=== PATIENT | female | born 1950 | race Caucasian/White ===

== ENCOUNTER → 2016-11-03 | Outpatient (CLI) | payer OTHER ==
[~2016-11-03] MED LIST: ALBU18002 INH; ASPI81TA28 PO; CHOL100027 PO; EMPA1TAB3 PO; GLIM4TAB PO; HYDR25TA4 PO; HYDUNK PO; KETO10TA PO; LEVO50TA PO; LISI-729 PO; LSNUNK PO; LVXUNK PO; ONDA4TAB7 SL; OXYB5TAB74 PO; OXYC-57 PO; PRVC40 PO; REPA2TAB13 PO; [UNRECOGNIZED DRUG - OTHER] PO
[2016-11-03 11:08] LABS: BASO % 0.4 %; BASO ABS # 0.02 K/uL (0-0.2); COMPLETE YES; EOS % 4.1 %; HEMATOCRIT 45.1 % (37-47); IG% 0.2 %; LYMPH % 24.3 %; LYMPH ABS # 1.31 K/uL (1.2-3.4); MEAN CELL VOLUME 82.3 fL (80-100); MEAN CORPUSCULAR HEMOGLOBIN 28.3 pg (25-34); MEAN CORPUSCULAR HGB CONC 34.4 g/dl (32-36); MEAN PLATELET VOLUME 10.5 fL (7.4-10.4); MONO % 6.5 %; NEUT % 64.5 %; PLATELET COUNT 188 K/uL (130-400); RED BLOOD COUNT 5.48 M/uL (4.2-5.4); WHITE BLOOD COUNT 5.39 K/uL (4.8-10.8)
[2016-11-03 11:20] LABS: BLOOD UREA NITROGEN 16 mg/dl (7-18); BUN/CREATININE RATIO 14.1 (10-20); CALCIUM 9.7 mg/dl (8.5-10.1); CARBON DIOXIDE 28 mmol/L (21-32); CHLORIDE 104 mmol/L (98-107); GLUCOSE 217 mg/dl (70-99); POTASSIUM 3.5 mmol/L (3.5-5.1); SODIUM 141 mmol/L (136-145)
== END | disposition home or self-care (01) ==
LOC: C.CPL 09:51
PROVIDERS: ATTEND Orthopaedic Surgery
DX: M25.512 Pain in left shoulder (principal)

== ENCOUNTER → 2016-11-18 | Day surgery (SDC) | payer OTHER ==
[2016-11-03 11:38] VITALS: Ht 172.7 cm; Wt 83.2 kg
[~2016-11-18] VITALS: Ht 172.7 cm; Wt 83.2 kg
[~2016-11-18] MED LIST changes: +ATROPINE SULFATE 0.1 MG/ML 5ML SYR IV PRN; +BUPIVACAINE/EPINEPHRINE 0.25% 1:200,000 30 ML VIAL ONE; +CEFAZOLIN 2000 MG/60 ML D5W IV SCH; -CHOL100027 PO; +DEXAMETHASONE SOD INJ 4 MG/ML VIAL IV PRN; +EpHEDrine SULFATE INJ 50 MG/ML AMP IV PRN; +EpINEphrine INJ 1MG/ML AMP 1 MG/ML AMP ONE; +FENTANYL CITRATE INJ 50 MCG/1 ML 2 ML VIAL IV PRN; +FENTANYL CITRATE INJ 50 MCG/1 ML 2 ML VIAL ONE; -HYDUNK PO; +KETOROLAC TROMETHAMINE 30 MG/ML VIAL IV. PRN; +LABETALOL HCL IV 5 MG/ML 20ML IV PRN; +LACTATED RINGER'S 1000ML 1,000 ML IV SCH; +LIDOCAINE HCL 1% MPF 2 ML VIAL ONE; +LIDOCAINE HCL 2% 2 ML VIAL (20MG/ML) ONE; -LSNUNK PO; -LVXUNK PO; +METOCLOPRAMIDE HCL INJ 5 MG/ML 2 ML VIAL IV PRN; +MIDAZOLAM HCL 1 MG/ML 2ML VIAL ONE; +MoRPHine SULFATE 10 MG/ML CARP/VIAL IV PRN; -ONDA4TAB7 SL; +ONDANSETRON INJ 2 MG/ML 2 ML VIAL IV PRN; +ONDANSETRON INJ 2 MG/ML 2 ML VIAL ONE; +OXYCODONE/ACETAMINOPHEN 5-325 TAB PO PRN; +PHENYLEPHRINE 100MCG/ML 5ML SYR IV PRN; +PROPOFOL IV EMULSION 10 MG/ML 20 ML VIAL IV ONE; +ROPIVACAINE 0.5% 5 MG/ML 30 ML VIAL ONE; +SODIUM CHLORIDE 0.9% 1000ML 1,000 ML IV SCH; -[UNRECOGNIZED DRUG - OTHER] PO
--- NOTE | 2016-11-18 10:50 | History & Physical Bridge - [place] ---
H&P Re-Evaluation Bridge Note: I have examined the patient, reviewed the History & Physical and in the interval since the performance of the History & Physical I have noted the following changes of clinical significance: No changes noted
[2016-11-18 13:10] VITALS: TEMP 36.4
--- NOTE | 2016-11-18 13:13 | [facility] Post Operative Brief Note ---
Immediate Operative Summary Operative Date Nov 18, 2016. Pre-Operative Diagnosis Left Shoulder Impingement Syndrome; Pain Post-Operative Diagnosis same Procedure(s) Performed Left Shoulder Arthroscopy, Subacromial Decompression, Distal Clavicle Excision Surgeon Dr Childers [employer] Team Member Surgeon(s) ISHMAEL Coyle Estimated Blood Loss trace Findings as above Specimens none Complication(s) None Disposition Recovery Room / PACU
--- NOTE | 2016-11-18 13:15 | Discharge Instructions-SurgCtr ---
Discharge Instructions Visit Reason for Visit: Left Shoulder Impingement Syndrome; Pain Discharge Discharge Diagnosis / Problem: SAME ABOVE Discharge Goals Goal(s): Decrease discomfort, Improve function Activity Recommendations Activity Limitations: as noted below Lifting Limitations: gradually increase as tolerated Exercise/Sports Limitations: gradually increase as tolerated Shower/Bathe: may shower/bathe in 3 days Anesthesia . Post Anesthesia Instructions: If you have had General Anesthesia or IV Sedation: * Do not drive today. * Resume driving when surgeon permits. * Do not make important decisions or sign legal documents today. * Call surgeon for: 1. Temperature elevations greater than 101 degrees F. 2. Uncontrollable pain. 3. Excessive bleeding. 4. Persistent nausea and vomiting. 5. Medication intolerance (nausea, vomiting or rash). * For nausea and vomiting use only clear liquids such as: tea, soda, bouillon until nausea subsides, then gradually increase diet as tolerated. * If you have any concerns or questions, call your surgeon's office. If physician is unavailable and it is an emergency, call 911 or go to the nearest emergency room. . Instructions / Follow-Up Instructions / Follow-Up MEDICATIONS: * Resume previous medications unless instructed otherwise by your surgeon. * Always take pain medication on a full stomach or with food to avoid upset stomach. * Do not drink alcohol or drive while taking narcotics. * Ibuprofen or Tylenol may be taken if narcotic not needed. SPECIAL CARE INSTRUCTIONS: __ None _X_ Keep extremity elevated and iced x 48 hours; apply ice 20-30 minutes 8-10 times/day. May remove at night. _X_ Sling (WEAR NEEDED FOR COMFORT) __24 hrs/day __ Remove at night __ Shoulder Immobilizer __ 24 hrs/day __ Remove at night _X_ Dressing __ Maintain until seen in office, may shower with plastic over site _X_ Remove dressings in 24-48 hours and then may shower _X_ Cover incisions with band-aids after showering __ Do not remove steri-strips Call physician if chills or temperature rises above 102 degrees or pain unrelieved by prescribed pain medications at . . Diet Recommendations Home Diet: no limitations Fluid Restriction: None Procedures Procedures Performed: Left Shoulder Arthroscopy, Subacromial Decompression, Distal Clavicle Excision Pending Studies Studies pending at discharge: no Work Instructions Return To Work: after follow-up Lifting Limitations: INCREASE TOLERATED Medical Emergencies . Who to Call and When: Medical Emergencies: If at any time you feel your situation is an emergency, please call 911 immediately. . Non-Emergent Contact Non-Emergency issues call your: Primary Care Provider Call Non-Emergent contact if: you have a fever, temperature is above 101.5 . . "Provider Documentation" section prepared by Curly Zee.
--- NOTE | 2016-11-18 13:25 | Anesthesia Progress Nt - [facility] ---
Anesthesia Post Op Note Date & Time Nov 18, 2016 at 13:26 Vital Signs Pain Intensity: 0 Vital Signs Past 12 Hours Date Time Temp Pulse Resp B/P Pulse Ox O2 Delivery O2 Flow Rate FiO2 11/18/16 12:13 73 11/18/16 12:13 76 23 96 11/18/16 12:10 114/69 11/18/16 12:08 70 13 96 11/18/16 12:08 70 11/18/16 12:07 70 17 96 11/18/16 12:07 71 11/18/16 12:05 114/72 11/18/16 12:02 67 11/18/16 12:02 68 15 96 11/18/16 12:01 67 11/18/16 12:01 66 0 95 11/18/16 12:00 71 11/18/16 12:00 71 119/73 96 11/18/16 11:59 69 11/18/16 11:59 69 0 96 11/18/16 11:55 138/87 11/18/16 11:54 71 10 96 11/18/16 11:54 71 11/18/16 11:53 69 11/18/16 11:53 69 11 96 11/18/16 11:50 125/72 11/18/16 11:48 71 14 98 11/18/16 11:48 70 11/18/16 11:47 122/74 11/18/16 11:45 68 0 96 11/18/16 11:45 70 11/18/16 11:44 72 11/18/16 11:44 70 0 97 11/18/16 11:39 68 11/18/16 11:39 68 0 94 11/18/16 11:34 73 0 97 11/18/16 11:34 73 11/18/16 11:29 66 11/18/16 11:29 66 0 94 11/18/16 11:24 70 0 95 11/18/16 11:24 70 11/18/16 11:19 74 11/18/16 11:19 74 0 95 11/18/16 11:14 74 11/18/16 11:14 75 0 95 11/18/16 10:55 36.5 87 18 126/92 97 Room Air Notes Mental Status: alert / awake / arousable, participated in evaluation Pt Amnestic to Procedure: Yes Nausea / Vomiting: adequately controlled Pain: adequately controlled Airway Patency, RR, SpO2: stable & adequate BP & HR: stable & adequate Hydration State: stable & adequate Anesthetic Complications: no major complications apparent
--- NOTE | 2016-11-18 14:09 | OPERATIVE REPORT ---
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 POSTOPERATIVE DIAGNOSIS: Same. PROCEDURE: Left shoulder diagnostic arthroscopy with limited debridement, distal clavicle resection, acromioplasty. SURGEON: Dr. Carlos Childers. [place]: Perez Zee PA-C, whose assistance was necessary for positioning the arm and helping with instrumentation. ANESTHESIA: Sedation with a left interscalene nerve block. COMPLICATIONS: None. CONDITION: Stable to PACU. INDICATIONS: Karina is a pleasant 65-year-old female who presented to my office with complaints of left shoulder pain. MRI and clinical examination were diagnostic for external impingement and AC joint arthritis. After failing extensive conservative treatment, she elected to undergo arthroscopy. OPERATION AND FINDINGS: On 11/18/2016 she arrived at [facility] for the above procedure. She was seen in the preoperative holding and the operative extremity was identified and signed. She was given a preoperative antibiotic, taken back to the operating room, laid on the table in supine position and given basic sedation. The left shoulder was then prepped and draped in sterile fashion. Time-out was done and the patient and operative extremity was properly identified. A scope was introduced in the posterior portal. Diagnostic arthroscopy showed some grade 2 chondral changes on the humeral head and some areas of grade 2 chondral changes on the glenoid. They were very small cartilaginous loose bodies. There was some fraying of the anterior labrum. The biceps tendon was intact and went through a normal size biceps gustabo mechanism and the rotator cuff was intact. An anterior portal was made. A shaver was used to do a limited debridement of the intraarticular structures. The scope was placed into the subacromial space. A lateral portal was made. A shaver was used to do a complete subacromial and subdeltoid bursectomy of very red subacromial bursitis. An ablator was used to tease the coracoacromial ligament off the undersurface of the acromion and a 5-0 ankush was used to complete an acromioplasty of a Bigliani type 3 acromion. A shaver was used to remove any excess debris and attention was turned to the rotator cuff. There was no evidence of any bursal sided rotator cuff tears. Attention was then turned to the distal clavicle. Through the anterior portal, a shaver and ablator were used to skeletonize the distal clavicle. A 5-0 ankush was then used to resect the distal 7 mm from the clavicle. Complete resection was checked under direct visualization. A shaver was used to remove any excess debris and no additional pathology was identified. Arthroscopic instruments were removed from the shoulder. Portal sites were closed with 3-0 nylon. She was then placed in a soft dressing and a left arm sling. She was then extubated, transferred to a litter and taken to the postanesthesia care unit in stable condition. She tolerated the procedure well. I attest to the content of the Intraoperative Record and any orders documented therein. Any exceptio ns are noted below.
[2016-11-18 14:10] VITALS: BP 111/67; PULSE 73; O2SAT 96
== END | disposition home or self-care (01) ==
LOC: X.SURG 10:46
PROVIDERS: ATTEND Orthopaedic Surgery
DX: M75.42 Impingement syndrome of left shoulder (principal); M19.012 Primary osteoarthritis, left shoulder; Z98.890 Other specified postprocedural states; I10 Essential (primary) hypertension; J45.909 Unspecified asthma, uncomplicated

== ENCOUNTER 2017-10-17 11:22 | Emergency (ER) | payer OTHER ==
[~2017-10-17] VITALS: Ht 172.7 cm; Wt 86.7 kg
[~2017-10-17 11:22] MED LIST changes: -ATROPINE SULFATE 0.1 MG/ML 5ML SYR IV PRN; -BUPIVACAINE/EPINEPHRINE 0.25% 1:200,000 30 ML VIAL ONE; -CEFAZOLIN 2000 MG/60 ML D5W IV SCH; -DEXAMETHASONE SOD INJ 4 MG/ML VIAL IV PRN; +DTR/5 PO; -EpHEDrine SULFATE INJ 50 MG/ML AMP IV PRN; -EpINEphrine INJ 1MG/ML AMP 1 MG/ML AMP ONE; -FENTANYL CITRATE INJ 50 MCG/1 ML 2 ML VIAL IV PRN; -FENTANYL CITRATE INJ 50 MCG/1 ML 2 ML VIAL ONE; -KETO10TA PO; -KETOROLAC TROMETHAMINE 30 MG/ML VIAL IV. PRN; -LABETALOL HCL IV 5 MG/ML 20ML IV PRN; -LACTATED RINGER'S 1000ML 1,000 ML IV SCH; -LIDOCAINE HCL 1% MPF 2 ML VIAL ONE; -LIDOCAINE HCL 2% 2 ML VIAL (20MG/ML) ONE; -METOCLOPRAMIDE HCL INJ 5 MG/ML 2 ML VIAL IV PRN; -MIDAZOLAM HCL 1 MG/ML 2ML VIAL ONE; -MoRPHine SULFATE 10 MG/ML CARP/VIAL IV PRN; -ONDANSETRON INJ 2 MG/ML 2 ML VIAL IV PRN; -ONDANSETRON INJ 2 MG/ML 2 ML VIAL ONE; -OXYB5TAB74 PO; -OXYC-57 PO; -OXYCODONE/ACETAMINOPHEN 5-325 TAB PO PRN; -PHENYLEPHRINE 100MCG/ML 5ML SYR IV PRN; -PROPOFOL IV EMULSION 10 MG/ML 20 ML VIAL IV ONE; +REPA2TAB12 PO; -REPA2TAB13 PO; -ROPIVACAINE 0.5% 5 MG/ML 30 ML VIAL ONE; -SODIUM CHLORIDE 0.9% 1000ML 1,000 ML IV SCH
[2017-10-17 11:26] VITALS: TEMP 36.7; Ht 172.7 cm; Wt 86.7 kg
[2017-10-17] MEDS ORDERED: ALBUT/IPRATROP 3MG/0.5MG NEB 3 ML VIAL INH STA (11:54)
[2017-10-17 12:54] LABS: BASO % 0.6 %; BASO ABS # 0.04 K/uL (0-0.2); EOS % 2.6 %; EOS ABS # 0.17 K/uL (0-0.5); HEMATOCRIT 44.2 % (37-47); HEMOGLOBIN 15.2 g/dL (12.0-16.0); IG# 0.01 K/uL (0.00-0.02); LYMPH % 23.5 %; LYMPH ABS # 1.54 K/uL (1.2-3.4); MEAN CELL VOLUME 81.7 fL (80-100); MEAN CORPUSCULAR HEMOGLOBIN 28.1 pg (25-34); MEAN CORPUSCULAR HGB CONC 34.4 g/dl (32-36); MEAN PLATELET VOLUME 9.6 fL (7.4-10.4); MONO % 6.1 %; PLATELET COUNT 217 K/uL (130-400); RED CELL DISTRIBUTION WIDTH CV 13.1 % (11.5-14.5); WHITE BLOOD COUNT 6.56 K/uL (4.8-10.8)
--- NOTE | 2017-10-17 12:58 | DIAGNOSTIC IMAGING REPORT ---
CHEST ONE VIEW PORTABLE CLINICAL HISTORY: Chest pain. COMPARISON STUDY: Chest radiograph December 02, 2013. FINDINGS: Lung volumes are normal. No pneumothorax or pleural effusion is noted. There is no evidence for pulmonary edema. No consolidation is identified. Cardiac size is normal. Mediastinal contours are normal. There are cholecystectomy clips. IMPRESSION: No acute cardiopulmonary findings. Electronically signed by: Owen Hagen M.D. 10/17/2017 12:56 PM Dictated Date/Time: 10/17/2017 12:56 PM
[2017-10-17 13:08] LABS: ALBUMIN 4.3 gm/dl (3.4-5.0); ALT/SGPT 41 U/L (12-78); BLOOD UREA NITROGEN 9 mg/dl (7-18); CALCIUM 9.7 mg/dl (8.5-10.1); CARBON DIOXIDE 27 mmol/L (21-32); CREATININE 1.03 mg/dl (0.60-1.20); GLUCOSE 174 mg/dl (70-99); LIPASE 149 U/L (73-393); POTASSIUM 3.1 mmol/L (3.5-5.1); SODIUM 137 mmol/L (136-145)
[2017-10-17 13:13] LABS: ALKALINE PHOSPHATASE 77 U/L (45-117); AST/SGOT 22 U/L (15-37)
[2017-10-17] MEDS ORDERED: INSDGIPEN SC (13:46)
[2017-10-17] MEDS ORDERED: VSC/5 PO (13:46)
[2017-10-17 14:23] VITALS: BP 117/61; PULSE 79; O2SAT 95
--- NOTE | 2017-10-18 16:55 | EMERGENCY ROOM VISIT NOTE ---
ED Visit Note First contact with patient: 11:41 Chief Complaint: Chest pain. History of Present Illness: Ms. Em is a 66 year-old white female who ambulates into the ED complaining of chest pain. Historically patient reports she did not have any personal history or family of heart disease. She does have a history of diabetes, hypertension. Patient reports approximately 24 hours ago she was at [employer] and started experiencing right sided mandibular pain. She describes her pain as a sharp sensation. Her pain started radiating into the right side of the chest. The pain self resolved after approximately 10-15 minutes. She rated her discomfort 7/10. She denies any associated symptoms including upper respiratory tract symptoms, cough, wheezing, shortness of breath, abdominal pain, nausea/vomiting , fevers, chills, sweats, clots, claudication, recent surgery/inactivity/ extended travel. Patient goes on to report that when she woke this morning she had the sensation like she could not bring enough air into her body. This occurred approximately 3 hours ago. The sensation has been constant and patient has not identified any aggravating or alleviating factors related to this. She does report she has a history of asthma and she did use her inhaler without success. Additionally she denies upper respiratory tract symptoms, cough, wheezing, hemoptysis, abdominal pain, nausea, vomiting. Review of Systems: As noted above in history of present illness. All body systems were reviewed and found to be negative as noted above. Past Medical History: As previously noted, diabetic kidney disease, status post cholecystectomy and unspecified surgery. Current Medications: Medications Dose Route/Sig Max Daily Dose Days Date Category Lantus Solostar (Insulin Glargine) 100 Unit/Ml Inj 20 Units SC DAILY 10/17/17 Reported Vesicare (Solifenacin) 5 Mg Tab 5 Mg PO DAILY 10/17/17 Reported Proair Respiclick (Albuterol Sulfate) 108 Mcg/Act Aer 2 Puffs INH Q4H PRN 11/03/16 Reported Pravastatin Sodium (Pravastatin Sod) 40 Mg Tab 1 Tab PO HS 11/03/16 Reported Prinivil (Lisinopril) 5 Mg Tab 5 Mg PO QAM 11/03/16 Reported Synthroid (Levothyroxine Sodium) 50 Mcg Tab 50 Mcg PO QAM 11/03/16 Reported Hctz (Hydrochlorothiazide) 25 Mg Tab 25 Mg PO QAM 11/03/16 Reported Prandin (Repaglinide) 2 Mg Tab 4 Mg PO DINNER 11/03/16 Reported Prandin (Repaglinide) 2 Mg Tab 2 Mg PO LUNCH 11/03/16 Reported Aspirin Ec (Aspirin) 81 Mg Tab 81 Mg PO QAM 11/03/16 Reported Allergies to Medications: Patient denies. Social History: Patient is currently employed; she lives with her and feels safe in her home environment; she denies tobacco and alcohol use. Physical Examination: Vital Signs: Date Time Temp Pulse Resp B/P (MAP) Pulse Ox O2 Delivery O2 Flow Rate FiO2 10/17/17 14:23 79 20 117/61 95 10/17/17 12:37 81 16 128/65 97 Room Air 10/17/17 12:13 78 10/17/17 11:26 36.7 83 18 142/83 96 Room Air GENERAL: 66-year-old female in no acute distress, nontoxic-appearing, afebrile and hemodynamically stable. NEUROLOGICAL: Awake, alert and oriented to person, place and time. Answering questions appropriately and following commands. Normal gait. Good hand eye coordination. SKIN: Warm, dry and pink. No soft tissue eruptions or trauma noted. HEENT: Atraumatic and normocephalic. PERRLA. Sclera white and conjunctiva pink. Oral cavity moist and pink. Pharynx is nonerythematous or edematous. Speech normal. No lymphadenopathy. Trachea midline. No jugular venous distention. BACK: No tenderness over the bony spine. No CVA tenderness. THORAX: Lungs sounds are clear to auscultation and equal bilaterally with symmetrical chest wall. Air movement is diminished bilaterally. No wheezing, rales or rhonchi. No crepitus, tenderness, subcutaneous air or deformities noted. HEART: Regular rate and rhythm. No gallops, rubs or murmurs are appreciated. No lifts, heaves or thrills. PMI is not displaced. ABDOMEN: Flat, soft and nontender. Positive bowel sounds in all quadrants. No guarding, rigidity or organomegaly. EXTREMITIES: Moves all extremities well on command and with purpose. All distal neurovascular statuses are intact and equal bilaterally. No dependent edema or calf tenderness/cords. ED Course: Patient is assessed as noted above. Laboratory Testing: Test 10/17/17 12:30 Range/Units White Blood Count 6.56 4.8-10.8 K/uL Red Blood Count 5.41 4.2-5.4 M/uL Hemoglobin 15.2 12.0-16.0 g/dL Hematocrit 44.2 37-47 % Mean Corpuscular Volume 81.7 80-100 fL Mean Corpuscular Hemoglobin 28.1 25-34 pg Mean Corpuscular Hemoglobin Concent 34.4 32-36 g/dl Platelet Count 217 130-400 K/uL Mean Platelet Volume 9.6 7.4-10.4 fL Neutrophils (%) (Auto) 67.0 % Lymphocytes (%) (Auto) 23.5 % Monocytes (%) (Auto) 6.1 % Eosinophils (%) (Auto) 2.6 % Basophils (%) (Auto) 0.6 % Neutrophils # (Auto) 4.40 1.4-6.5 K/uL Lymphocytes # (Auto) 1.54 1.2-3.4 K/uL Monocytes # (Auto) 0.40 0.11-0.59 K/uL Eosinophils # (Auto) 0.17 0-0.5 K/uL Basophils # (Auto) 0.04 0-0.2 K/uL RDW Standard Deviation 39.0 36.4-46.3 fL RDW Coefficient of Variation 13.1 11.5-14.5 % Immature Granulocyte % (Auto) 0.2 % Immature Granulocyte # (Auto) 0.01 0.00-0.02 K/uL Sodium Level 137 136-145 mmol/L Potassium Level 3.1 3.5-5.1 mmol/L Chloride Level 101 98-107 mmol/L Carbon Dioxide Level 27 21-32 mmol/L Anion Gap 9.0 3-11 mmol/L Blood Urea Nitrogen 9 7-18 mg/dl Creatinine 1.03 0.60-1.20 mg/dl Est Creatinine Clear Calc Drug Dose 61.9 ml/min Estimated GFR () 65.6 Estimated GFR (Non- 56.6 BUN/Creatinine Ratio 8.3 10-20 Random Glucose 174 70-99 mg/dl Calcium Level 9.7 8.5-10.1 mg/dl Total Bilirubin 0.4 0.2-1 mg/dl Direct Bilirubin 0.1 0-0.2 mg/dl Aspartate Amino Transf (AST/SGOT) 22 15-37 U/L Alanine Aminotransferase (ALT/SGPT) 41 12-78 U/L Alkaline Phosphatase 77 45-117 U/L Troponin I < 0.015 0-0.045 ng/ml Total Protein 8.0 6.4-8.2 gm/dl Albumin 4.3 3.4-5.0 gm/dl Lipase 149 73-393 U/L Chest X-Rays: Were read by myself and the radiologist showing no acute infiltrates, effusions or pneumothorax. Normal heart silhouette EKG: Was read by myself and reviewed with Dr. Porter; shows normal sinus rhythm with a ventricular rate of 78 bpm. Her mother asked his, intervals and complexes. No acute ST changes indicating ischemia, injury or infarction. This was compared to a previous and no acute changes were noted. Patient was IV lock was initiated and patient received an albuterol/Atrovent nebulizer breathing treatment. Patient was reassessed after her breathing treatment her lungs showed increased air movement in all knight with prominence in the bases. Patient reported subjectively she was feeling slightly better. Patient's case was reviewed with Dr. Porter; we agreed on diagnostic approach, treatment, disposition and plan. Patient was educated about today's findings and instructed her treatment plan; she verbalized understanding and agreement with this plan. Clinical Impression: Chest pain. Difficulty breathing. Decision-Making: Initially my differential diagnosis I considered acute coronary syndrome, thoracic aneurysm, pneumothorax, pneumonia, pulmonary embolism, asthma exacerbation and other causes. Disposition: Patient discharged home in stable condition accompanied by her ; prior to departure she was reassessed and remained pain-free and reported at rest she still felt slightly short of breath. Plan: Patient was encouraged use 650 mg of acetaminophen by mouth for pain per Patient was encouraged to use 2 puffs of her albuterol inhaler with spacer every 6 hours for the next 5 days and as needed for sensations of shortness of breath or difficulty breathing. Patient is encouraged to follow-up with family physician for recheck. Patient was encouraged return ED for return of pain, worsening shortness of breath/difficulty breathing, fevers, vomiting or any new/concerning symptoms.
== END 2017-10-17 14:20 | disposition home or self-care (01) ==
LOC: C.EDB 11:23
DX: R07.9 Chest pain, unspecified (principal); R06.00 Dyspnea, unspecified; E11.22 Type 2 diabetes mellitus with diabetic chronic kidney disease; I12.9 Hypertensive chronic kidney disease with stage 1 through stage 4 chronic kidney disease, or unspecified chronic kidney disease; J45.909 Unspecified asthma, uncomplicated; N18.9 Chronic kidney disease, unspecified; Z79.4 Long term (current) use of insulin; Z79.82 Long term (current) use of aspirin; Z90.49 Acquired absence of other specified parts of digestive tract

== ENCOUNTER → 2018-02-01 | Outpatient (CLI) | payer OTHER ==
[~2018-02-01] MED LIST changes: -DTR/5 PO; -EMPA1TAB3 PO; -GLIM4TAB PO; +INSDGIPEN SC; +VSC/5 PO
--- NOTE | 2018-02-01 13:05 | DIAGNOSTIC IMAGING REPORT ---
NUCLEAR GASTRIC EMPTYING STUDY CLINICAL HISTORY: Diabetes. Change in bowel habits. COMPARISON STUDY: No priors. TECHNIQUE: Following the oral administration of 1.1 mCi of technetium 99m sulfur colloid in egg sandwich and 8 ounces of water, static abdominal images are obtained anteriorly and posteriorly at 0 minutes, 1 hour, 2 hour, and 4 hour time intervals. Gastric emptying was calculated utilizing the geometric mean method. FINDINGS: There is approximately 96% activity remaining at the 1 hour time interval, 60% remaining at the 2 hour time interval (normal is less than 60%), and 2% activity remaining at the 4 hour time interval (normal is less than 10%). IMPRESSION: Findings are consistent with normal gastric emptying for solids. Electronically signed by: Nehemiah Levin M.D. 02/01/2018 1:04 PM Dictated Date/Time: 02/01/2018 1:03 PM
== END | disposition home or self-care (01) ==
LOC: C.NUCL 07:40
PROVIDERS: ATTEND Physician Assistant
DX: R19.4 Change in bowel habit (principal); E11.9 Type 2 diabetes mellitus without complications

== ENCOUNTER 2018-04-22 00:24 | Emergency (ER) | payer BC, OTHER ==
[~2018-04-22] VITALS: Ht 172.7 cm; Wt 88.9 kg
[2018-04-22 00:37] VITALS: TEMP 36.5; Ht 172.7 cm; Wt 88.9 kg
[2018-04-22] MEDS ORDERED: KETOROLAC TROMETHAMINE 60 MG/2 ML VIAL IM STA (00:43)
[2018-04-22] MEDS ORDERED: DICL75TA2 PO (02:03)
[2018-04-22 02:13] VITALS: BP 121/72; PULSE 69; O2SAT 95
--- NOTE | 2018-04-22 05:21 | EMERGENCY ROOM VISIT NOTE ---
History First contact with patient: 00:39 Chief Complaint: FOOT PAIN Stated Complaint: FOOT PAIN History of Present Illness The patient is a 67 year old female who presents to the Emergency Room with complaints of right foot pain for the past 8 or 9 days. The patient does not have distinct injury or trauma to explain her symptoms. Her discomfort has been waxing and waning, and seemed to initially worsen after she was driving and using her foot to operate the gas pedal. Patient does not have recent fever or chills. She is diabetic and has not noticed significant redness into the area. Her discomfort worsens when she walks or presses at the base of her great toe. No other discomfort is reported. She did trial some ibuprofen this morning which did seem to help her discomfort for a few hours. She does not have a history of gout. The pain at rest is a 2/10, but it is an 8/10 with walking. Review of Systems More than 10 systems were reviewed and otherwise negative with the exception of history of present illness. Past Medical/Surgical History Medical Problems: (1) Diabetes (2) Hypertension (3) Hypothyroidism Surgical Problems: (1) Hx of cholecystectomy Family History FH: heart disease Social History Smoking Status: Never Smoker Alcohol Use: none Drug Use: none Marital Status: Housing Status: lives with family Occupation Status: employed Current/Historical Medications Scheduled Aspirin (Aspirin Ec), 81 MG PO QAM Diclofenac Sodium (Voltaren), 75 MG PO BID Hydrochlorothiazide (Hctz), 25 MG PO QAM Insulin Glargine (Lantus Solostar), 20 UNITS SC DAILY Levothyroxine Sodium (Synthroid), 50 MCG PO QAM Lisinopril (Prinivil), 5 MG PO QAM Pravastatin Sod (Pravastatin Sodium), 1 TAB PO HS Repaglinide (Prandin), 2 MG PO LUNCH Repaglinide (Prandin), 4 MG PO DINNER Solifenacin (Vesicare), 5 MG PO DAILY Scheduled PRN Albuterol Sulfate (Proair Respiclick), 2 PUFFS INH Q4H PRN for SOB/Wheezing Physical Exam Vital Signs Date Time Temp Pulse Resp B/P (MAP) Pulse Ox O2 Delivery O2 Flow Rate FiO2 04/22/18 02:13 69 18 121/72 95 04/22/18 00:37 36.5 76 18 144/81 97 Room Air Physical Exam VITALS: Vitals are noted on the nurse's note and reviewed by myself. Vital signs stable. GENERAL: Well-developed, well-nourished, white female, who is in no acute distress and resting comfortably. Patient is cooperative with the examination. HEAD: Normocephalic atraumatic. HEART: Regular rate and rhythm without murmurs gallops or rubs. LUNGS: Clear to auscultation bilaterally without wheezes, rales or rhonchi. No retractions or accessory muscle use. MUSCULOSKELETAL: No muscle atrophy, erythema, or edema noted. Mild tenderness is appreciated along the medial aspect of the right foot at the MTP joint. There is no significant erythema or edema noted at this location. The patient is able to flex and extend without significant discomfort. No tenderness throughout the plantar aspect or into the heel of the right foot. No evidence of fungal or yeast infection. No foreign bodies. No tenderness into the posterior leg or knee Medical Decision & Procedures Medications Administered Medications (Trade) Dose Ordered Sig/Nona Route Start Time Stop Time Status Last Admin Dose Admin Ketorolac Tromethamine (Toradol Inj) 60 mg NOW STAT IM 04/22/18 00:43 04/22/18 00:45 DC 04/22/18 00:53 60 MG ED Course Physical exam and history were performed. Nursing notes, EMR, and Medication List were personally reviewed. Patient appears to have right foot pain bringing her to the emergency department tonight. The patient discomfort has been going on for several days, and on examination she appears well. X-rays were obtained and reviewed by myself and my attending is showing no obvious process. Official radiology read is pending at the time of this dictation, and we will contact her with any discrepancies. Overall the patient did have some improvement of her discomfort with some IM Toradol. Clinically I suspect her symptoms are likely musculoskeletal in nature and should improve with conservative care. I will give her a short course of diclofenac and have her follow with orthopedics with any ongoing or persisting symptoms. The patient was pleased with this plan and voiced understanding. She rated her discomfort a 1/10 at the time of departure. The chart was completed utilizing [employer] Voice Recognition Software. Grammatical errors, random word insertions, pronoun errors, and incomplete sentences are an occasional consequence of this system due to software limitations, ambient noise, and hardware issues. Any formal questions or concerns about the content, text, or information contained within the body of this dictation should be directly addressed to the provider for clarification. . Medical Decision Differential diagnosis includes, but is not limited to: Sprain, strain, fracture , dislocation, subluxation, contusion, infection, gout, neuropathy, musculoskeletal etiology, and others Impression Primary Impression: Right foot pain Departure Information Dispostion Home / Self-Care Condition GOOD Prescriptions Diclofenac Sodium (VOLTAREN) 75 Mg Tab 75 MG PO BID for 7 Days, #30 TAB Prov: Azam Pollack PA-C 04/22/[address] D[address]O. Forms HOME CARE DOCUMENTATION FORM, IMPORTANT VISIT INFORMATION Patient Instructions My [facility] Additional Instructions You were seen and evaluated today on an emergency basis only. This is not a substitute for, or an effort to provide, complete comprehensive medical care. It is not possible to recognize and treat all injuries or illnesses in a single emergency department visit. For this reason it is recommended that you followup with orthopedics, Dr. Lane 's office, next week if symptoms persist. Take diclofenac 75 mg twice daily with food for the next week. You are welcome to return to the emergency department anytime with new, worsening, or concerning symptoms.
--- NOTE | 2018-04-22 08:56 | DIAGNOSTIC IMAGING REPORT ---
RIGHT FOOT 3 VIEWS CLINICAL HISTORY: Right foot pain. FINDINGS: 3 views of the right foot are obtained. No prior studies are available for comparison at the time of dictation. The skeletal structures are osteopenic. No fracture is seen. Minimal osteoarthritic change is noted at the first metatarsophalangeal joint. The joint spaces of the foot are otherwise preserved. There is a questionable punctate metallic foreign body versus artifact seen only on the lateral projection along the plantar aspect of the metatarsal heads. This could not be corroborated on the other views. The overlying soft tissues are otherwise normal in appearance. IMPRESSION: 1. No acute bony abnormality is identified. 2. Question a punctate metallic foreign body versus artifact in the plantar soft tissues as above. Electronically signed by: Nehemiah Levin M.D. 04/22/2018 8:55 AM Dictated Date/Time: 04/22/2018 8:52 AM
== END 2018-04-22 02:14 | disposition home or self-care (01) ==
LOC: C.EDB 00:25 → C.EDA 02:14
DX: M79.671 Pain in right foot (principal); E11.9 Type 2 diabetes mellitus without complications; I10 Essential (primary) hypertension; E03.9 Hypothyroidism, unspecified; Z90.49 Acquired absence of other specified parts of digestive tract; Z79.82 Long term (current) use of aspirin; Z79.4 Long term (current) use of insulin; Z79.899 Other long term (current) drug therapy

== ENCOUNTER 2024-07-20 08:40 | Observation (INO) ==
--- NOTE | 2024-07-02 13:22 | PAT Medication Instructions ---
Medication Instructions Date of Service July 02, 2024 Home Medications Medication Instructions Recorded meclizine 25 mg tablet 25 mg PO TID PRN Dizziness #30 tabs 07/29/21 albuterol sulfate 90 mcg/actuation 2 puff inhalation Q4H PRN 09/08/22 aerosol inhaler Shortness Of Breath #8.5 grams pen needle, diabetic 31 gauge x #100 ea 01/23/24/" (BD Ultra-Fine Mini Pen Needle) levothyroxine 75 mcg tablet 75 mcg PO QAM #90 tabs 03/20/24 meclizine 25 mg tablet 25 mg PO TID PRN albuterol sulfate 90 mcg/actuation aerosol inhaler 2 puff inhalation Q4H PRN anastrozole 1 mg tablet 1 mg PO QAM calcium carbonate-ergocalciferol (vit D2) 1,200 mg-400 unit capsule 1 cap PO QAM Advil 3 tab PO UD PRN levothyroxine 75 mcg tablet 75 mcg PO QAM insulin glargine U-300 conc 300 unit/mL (1.5 mL) subcutaneous pen (Toujeo SoloStar U-300 Insulin) See Rx Instructions .Route .COMPLEX repaglinide 1 mg tablet See Rx Instructions .Route .COMPLEX atorvastatin 10 mg tablet (Lipitor) 10 mg PO QAM dulaglutide 1.5 mg/0.5 mL subcutaneous pen injector (Trulicity) 1.5 mg subcut WK dulaglutide 3 mg/0.5 mL subcutaneous pen injector (Trulicity) 3 mg subcut WK polyethylene glycol 3350 17 gram/dose oral powder (Miralax) 17 g PO DAILY STOP 7 days before surgery dulaglutide 1.5 mg/0.5 mL subcutaneous pen injector (Trulicity) 1.5 mg subcut WK dulaglutide 3 mg/0.5 mL subcutaneous pen injector (Trulicity) 3 mg subcut WK ASK your surgeon for instructions Advil 3 tab PO UD PRN ASK your prescriber and surgeon anastrozole 1 mg tablet 1 mg PO QAM DO NOT take the morning of surgery calcium carbonate-ergocalciferol (vit D2) 1,200 mg-400 unit capsule 1 cap PO QAM repaglinide 1 mg tablet See Rx Instructions .Route .COMPLEX polyethylene glycol 3350 17 gram/dose oral powder (Miralax) 17 g PO DAILY Take morning of surgery With a small sip of water, OTHERWISE NOTHING TO EAT OR DRINK AFTER MIDNIGHT: meclizine 25 mg tablet 25 mg PO TID PRN(if needed) albuterol sulfate 90 mcg/actuation aerosol inhaler 2 puff inhalation Q4H PRN(use if needed; please bring with you to hospital day of surgery if possible) levothyroxine 75 mcg tablet 75 mcg PO QAM atorvastatin 10 mg tablet (Lipitor) 10 mg PO QAM Take evening before surgery meclizine 25 mg tablet 25 mg PO TID PRN(if needed) albuterol sulfate 90 mcg/actuation aerosol inhaler 2 puff inhalation Q4H PRN(if needed) Insulin Dependent Diabetic Patients * Test your blood sugar the morning of surgery * If Blood Sugar is GREATER THAN 150, take HALF of your regular dose of: insulin glargine U-300 conc 300 unit/mL (1.5 mL) subcutaneous pen (Toujeo SoloStar U- 300 Insulin). * If Blood Sugar is LESS THAN 150, DO NOT TAKE ANY: insulin glargine U-300 conc 300 unit/mL (1.5 mL) subcutaneous pen (Toujeo SoloStar U-300 Insulin). Other Notes If you have any questions please call us at [phone] or [phone] or [phone] or [phone]
--- NOTE | 2024-07-05 13:38 | Anesthesiology Consultation ---
Date of Service July 05, 2024 Assessment & Plan (1) Encounter for pre-operative examination: - Check BSG AM DOS - Infectious disease screening: Per assessment on 07/05/24- No known recent infectious disease contacts or current infectious disease symptoms. - RUE limb restriction - Trulicity instructions: Patient informed to stop 7 days prior to surgery- voiced understanding. DOS 07/20/24. Advised last dose to be 07/13. - Pending: * Awaiting upcoming endocrine office visit [place] [place] * Awaiting surgeon-ordered cardiology preop evaluation ([facility] [place]13). Chart Review Chart Review: Patient seen in Pre Admission Testing Teaching & Discussion Pre-Anesthesia Teaching/Discussion Notes: Instructed NPO after midnight before surgery,except medications with 15 cc of water. Medication instructions provided according to the PAT guidelines. History Surgery Operation Date: 07/20/24 10:20 Proposed Procedures p L3-L4 Discectomy - Nehemiah Wadsworth MD Height/Weight Height: 5 ft 7.5 in Weight: 85.6 kg Allergies Allergy/AdvReac Type Severity Reaction Status Date / Time hydrocodone AdvReac Severe Over Verified 07/02/24 10:57 sedated oxycodone AdvReac Severe Over Verified 07/02/24 10:57 sedated Medications Home Medications Medication Instructions Recorded Confirmed Last Taken meclizine 25 mg tablet 25 mg PO TID PRN Dizziness #30 tabs 07/29/21 07/02/24 Unknown albuterol sulfate 90 mcg/actuation 2 puff inhalation Q4H PRN 09/08/22 07/02/24 Unknown aerosol inhaler Shortness Of Breath #8.5 grams anastrozole 1 mg tablet 1 mg PO QAM 03/24/23 07/02/24 Unknown calcium carbonate-ergocalciferol 1 cap PO QAM 03/24/23 07/02/24 Unknown (vit D2) 1,200 mg-400 unit capsule pen needle, diabetic 31 gauge x #100 ea 01/23/24 05/15/24 Unknown 3/16" (BD Ultra-Fine Mini Pen Needle) Advil 3 tab PO UD PRN Pain 03/13/24 07/02/24 Unknown levothyroxine 75 mcg tablet 75 mcg PO QAM #90 tabs 03/20/24 07/02/24 Unknown blood-glucose meter,continuous 04/17/24 05/15/24 Unknown (FreeStyle Saida 3 [place]) insulin glargine U-300 conc 300 See Rx Instructions .Route .COMPLEX 06/05/24 07/02/24 Unknown unit/mL (1.5 mL) subcutaneous pen (Toujeo SoloStar U-300 Insulin) repaglinide 1 mg tablet See Rx Instructions .Route .COMPLEX 06/05/24 07/02/24 Unknown atorvastatin 10 mg tablet (Lipitor) 10 mg PO QAM 07/02/24 07/02/24 Unknown dulaglutide 1.5 mg/0.5 mL 1.5 mg subcut WK 07/02/24 07/02/24 06/29/24 subcutaneous pen injector (Trulicity) dulaglutide 3 mg/0.5 mL 3 mg subcut WK 07/02/24 07/02/24 Unknown subcutaneous pen injector (Trulicity) polyethylene glycol 3350 17 17 g PO DAILY Constipation 07/02/24 07/02/24 Unknown gram/dose oral powder (Miralax) metoprolol succinate 25 mg 12.5 mg (1/2 x 25 mg) PO DAILY #90 07/05/24 Unknown tablet,extended release 24 hr tabs Past Medical History Medical History Asthma Hearing deficit Hx of breast cancer 2022 right breast lumpectomy/XRT RUE limb restriction Hypertension Hypothyroidism Mild aortic regurgitation Follows with [facility] Moderate mitral regurgitation Follows with [facility] Orthostatic hypotension Per records Osteoarthritis PVC's (premature ventricular contractions) Type 2 diabetes mellitus Exercise / Class Metabolic Activity III < 4 Walking/Shop/Light housework Past Family History Family History Mother Diabetes Colorectal cancer Lung disease Stroke Father Diabetes Lung cancer Other No family history of adverse response to anesthesia Denies family history of Ovarian cancer Prostate cancer Myocardial infarction Breast cancer Past Surgical History Surgical History H/O shoulder surgery left History of bilateral tubal ligation History of colonoscopy with polypectomy History of cone biopsy of uterine cervix benign History of lumpectomy of right breast History of surgical removal of ganglion cyst right wrist History of tooth extraction all teeth Hx of cholecystectomy S/P cataract surgery Bilateral Past Anesthesia History No Family Hx of Anesthesia Complications and Other (Slow to wake and hypotension after childbirth) History of PONV No Hx of PONV and No Hx of Motion Sickness Social History Smoking Status: Never smoker Do You Dip or Chew Tobacco: No Hx Alcohol Use: No Hx Substance Use: No substance use type: does not use Review of Systems Occasional palpitations. Patient denies chest pain, shortness of breath, dyspnea on exertion, fever, chills, cough, wheezing. Physical Exam Vital Signs BP 127/76 P 81 TEMP 98.1 SP02 95%RA RESP 16 Physical Full cervical extension range of motion. Full TMJ range of motion. TMD 2.5 finger breaths Mallampati Score III Dentition: upper/lower full dentures Lungs: clear throughout to auscultation Cardiac: regular rate and rhythm, no murmurs noted Spine: normal Carotid arteries: negative bruit Extremities: no LE edema Lab Results Anesthesia Preop Results Results Anesthesia Widget: WBC 6.20 K/ul (4.8-10.8) 07/05/24 Hgb 13.3 g/dl (12.0-16.0) 07/05/24 Hct 39.6 % (37.0-47.0) 07/05/24 Plt 210 K/uL (130-400) 07/05/24 Na 139 mmol/L (136-145) 07/05/24 K 3.8 mmol/L (3.5-5.1) 07/05/24 Cl 106 mmol/L (98-107) 07/05/24 CO2 27 mmol/L (21-32) 07/05/24 BUN 19 mg/dl (6-23) 07/05/24 Creat 0.95 mg/dl (0.6-1.2) 07/05/24 Glucose Level 152 mg/dl (70-99(Fasting)) H 07/05/24 PT 10.8 Seconds (9.0-12.0) 07/05/24 PTT 26 Seconds (21-31) 07/05/24 INR 1.0 (0.9-1.1) 07/05/24 HA1c 6.1 % (4.5-5.6) H 07/05/24 Blood Type B Positive 07/05/24 Antibody Screen NEGATIVE 07/05/24 Testing Electrocardiogram Date: 03/13/24 SR with premature supraventricular complexes at 79bpm. Low voltage QRS. Possible old anterior infarct (cited on or before 04/19/2019 per [employer] comparison). Chest X-Ray Date: 03/13/24 FINDINGS: No lines and tubes are seen. The cardiomediastinal silhouette is normal. Atelectasis is in the left lower lung. No airspace opacities are seen. No evidence of pleural effusion or pneumothorax. IMPRESSION: No acute abnormalities and in particular no radiographic evidence of pneumonia. Echocardiogram Date: 04/11/24 EF 65-70%. Grade I DD. Mild aortic root dilatation. Aortic root diameter 3.9cm. Mild to moderate AR. Moderate MR. Mild TR. No RWMA.
[2024-07-20] MEDS: LR 60ML/HR IV SCH (09:25)
[2024-07-20] MEDS: GABAPENTIN 300 MG CAP PO SCH (09:26)
[2024-07-20] MEDS: LACTATED RINGER'S 500 ML IV SCH (09:26)
[2024-07-20] MEDS: ACETAMINOPHEN 500 MG TAB PO SCH (09:26)
[2024-07-20] MEDS ORDERED: LABETALOL HCL IV 5 MG/ML 20ML IV PRN (10:42)
[2024-07-20] MEDS ORDERED: FLUMAZENIL 0.1 MG/1 ML 10 ML VIAL IV PRN (10:42)
[2024-07-20] MEDS ORDERED: ONDANSETRON INJ 2 MG/ML 2 ML VIAL IV PRN ×2 (10:42→16:21)
[2024-07-20] MEDS ORDERED: PROMETHAZINE HCL 6.25 MG in SODIUM CHLORIDE 0.9% 50 ML IV PRN (10:42)
[2024-07-20] MEDS ORDERED: NALOXONE HCL 0.4 MG/1 ML VIAL/CARP IV PRN ×2 (10:42→16:21)
[2024-07-20] MEDS ORDERED: ePHEDrine sulfate 50 MG/ML AMP IV PRN (10:42)
[2024-07-20] MEDS ORDERED: ATROPINE SULFATE 0.1 MG/ML 10ML SYR IV PRN (10:42)
[2024-07-20] MEDS ORDERED: MIDAZOLAM HCL 1 MG/ML 2ML VIAL ONE (11:47)
[2024-07-20] MEDS ORDERED: ROCURONIUM BROMIDE 10 MG/ML 5 ML VIAL IV ONE (11:47)
[2024-07-20] MEDS ORDERED: DEXAMETHASONE SOD INJ 4 MG/ML VIAL ONE (11:47)
[2024-07-20] MEDS ORDERED: LIDOCAINE 2% 2 ML VIAL/AMP(20MG/ML) INFIL ONE (11:47)
[2024-07-20] MEDS ORDERED: ONDANSETRON INJ 2 MG/ML 2 ML VIAL ONE (11:47)
[2024-07-20] MEDS ORDERED: PROPOFOL IV EMULSION 10 MG/ML 20 ML VIAL IV ONE (11:47)
[2024-07-20] MEDS ORDERED: fentaNYL citrate PF 100 MCG/2 ML VIAL ONE ×2 (11:47→13:43)
--- NOTE | 2024-07-20 12:12 | History & Physical Bridge Note ---
Date of Service July 20, 2024 History & Physical Bridge Note I have examined the patient, reviewed the History & Physical and in the interval since the performance of the History & Physical I have noted the following changes of clinical significance: no changes noted plan for left L3-4 discectomy
[2024-07-20] MEDS: ceFAZolin 2000MG 2,000 MG/15 ML SYR IV SCH (13:26)
[2024-07-20] MEDS ORDERED: ePHEDrine sulfate 50 MG/5 ML SYR ONE (13:56)
[2024-07-20] MEDS: FLOSEAL HEMOSTATIC MATRIX 10ML TOP ONE (14:24)
[2024-07-20] MEDS: VANCOMYCIN HCL 1000MG/20ML VIAL ONE (14:25)
[2024-07-20] MEDS: GELATIN SPONGE SZ 100 ONE (14:25)
[2024-07-20] MEDS ORDERED: SUGAMMADEX SODIUM 200 MG/2 ML VIAL IV ONE (14:27)
[2024-07-20] MEDS: BUPIVACAINE/EPINEPHRINE 0.5% MPF 1:200,000 30 ML VIAL ONE (14:39)
--- NOTE | 2024-07-20 15:10 | Operative Report ---
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 Postoperative diagnosis: L3-4 disc herniation with radiculopathy I identified the patient and participated in the time-out.: Yes Procedure Operation Date: 07/20/24 10:15 Actual Procedures p L3-L4 Discectomy with laminotomy (43226) Surgeon Nehemiah Wadsworth MD Avionics Technician Estimated Blood Loss 10 Findings See Below Extruded disc fragment left lateral recess was removed from L3-4 Specimens None Drains None Anesthesia Type General Complications none Disposition Disposition: Recovery Room Indications Patient was met in the office setting where she had intractable left lower extremity pain. Despite conservative management in the form of physical therapy, anti-inflammatories, gabapentin and muscle relaxers if he did not have significant relief. At the next office visit we discussed the possibility of epidural injection, continued conservative care or surgical intervention. Risks and benefits of an L3-4 laminotomy with discectomy were discussed with the patient and she elected to proceed with surgery. Risks and benefits of the surgery were explained and documented in the patient's clinic note. Description of Procedure Patient was brought to the operating room where general anesthesia was induced. She was placed in the prone position on the Naresh spine table with Martín frame. Martín frame was expanded to open the spinal canal diameter. SCDs for DVT prophylaxis, she was prepped and draped in the usual sterile fashion, received IV antibiotics for prophylaxis. Verbal timeout performed by identifying the patient by name date of , all were in agreement and elected to proceed. Preoperative fluoroscopy used to plan an incision over the L3-4 disc space. Skin was incised with a 10 blade scalpel, Bovie electrocautery was used to dissect down through the lumbodorsal fascia and elevate the musculature off the left side of the L3 lamina as well as superior L4 lamina. Nerve hook was placed in the L3-4 interlaminar space. C arm fluoroscopy was used to verify correct level. High-speed bur was used to thin the lamina of L3 on the left, Kerrison punch used to create a laminotomy window. On the left the ligamentum flavum between L3 and L4 was identified and removed with Kerrison punch. The traversing L4 nerve root was identified and retracted medially with a [place] 4 retractor. This exposed the L3-4 disc bulge, x-ray taken to demonstrate location of the L3- 4 disc space, the annulus was perforated and disc fragments removed. Nerve hook was also used to sweep down along the course of the L4 nerve root underneath the annulus and a large extruded disc fragment compressing the traversing L4 nerve root was removed with micropituitary. Bipolar electrocautery and Floseal used to obtain hemostasis. Wound was thoroughly irrigated. The traversing L4 nerve root was now well decompressed. Wound was closed in layers with Vicryl suture in the fascia and subcutaneous layer, skin closed with Monocryl and Dermabond with Prineo dressing. Sterile dressing was applied. Patient was awakened and taken to PACU in stable condition. I attest to the content of the Intraoperative Record and any orders documented therein. Any exceptions are noted below.
[2024-07-20] MEDS: fentaNYL citrate PF 100 MCG/2 ML VIAL IV PRN (15:25)
--- NOTE | 2024-07-20 15:53 | Anesthesiology Progress Note ---
Date of Service July 20, 2024 Anesthesia Post Procedure Vital Signs Vital Signs: Temp Pulse Pulse Resp BP Pulse Ox O2 Del Method 07/20/24 15:40 80 15 144/68 H 94 Nasal Cannula 07/20/24 15:30 79 18 141/76 H 94 Nasal Cannula 07/20/24 15:20 86 19 152/77 H 98 Oxymask 07/20/24 15:10 85 13 149/64 H 100 Oxymask 07/20/24 15:00 86 19 136/96 100 Oxymask 07/20/24 14:54 36.6 C 87 17 125/93 94 Oxymask 07/20/24 09:42 36.6 C 83 20 136/92 98 Room Air O2 Flow Rate 07/20/24 15:40 2 07/20/24 15:30 2 07/20/24 15:20 4 07/20/24 15:10 6 07/20/24 15:00 8 07/20/24 14:54 8 07/20/24 09:42 Pain Intensity Medial Back: Pain Intensity: 4 Transfer of Care Handoff Completed per policy Notes Mental Status: alert / awake / arousable Patient Amnestic to Procedure: Yes Nausea / Vomiting: adequately controlled Pain: adequately controlled Airway Patency, RR, SpO2: stable & adequate BP & HR: stable & adequate Hydration State: stable & adequate Anesthetic Complications: no major complications apparent
[2024-07-20] MEDS ORDERED: MECLIZINE HCL 25 MG TAB PO PRN (16:21)
[2024-07-20] MEDS ORDERED: ALUMINUM/MAGNESIUM SUSP 30 ML UDC PO PRN (16:21)
[2024-07-20] MEDS ORDERED: FAMOTIDINE 20 MG TAB PO PRN (16:21)
[2024-07-20] MEDS ORDERED: PHARMACY GLYCEMIC MGMT CONSULT PRN (16:21)
[2024-07-20] MEDS ORDERED: hydrOXYzine HCl 25 MG TAB PO PRN (16:21)
[2024-07-20] MEDS ORDERED: ONDANSETRON 4 MG OD TAB PO PRN (16:21)
[2024-07-20] MEDS ORDERED: bisacodyL 10 MG SUPP PR PRN (16:21)
[2024-07-20] MEDS ORDERED: DO NOT ADMINISTER PNEUMOCOCCAL VACCINE PRN (16:21)
[2024-07-20] MEDS ORDERED: LORazepam 2 MG/1 ML VIAL IV PRN (16:21)
[2024-07-20] MEDS ORDERED: [UNRECOGNIZED DRUG - OTHER] SCH (16:21)
[2024-07-20] MEDS ORDERED: METOCLOPRAMIDE HCL INJ 5 MG/ML 2 ML VIAL IV PRN (16:21)
[2024-07-20] MEDS ORDERED: MAGNESIUM HYDROXIDE SUSP 30 ML UDC PO PRN (16:21)
[2024-07-20] MEDS ORDERED: PROMETHAZINE 12.5 MG/50.5 ML BAG IV PRN (16:21)
[2024-07-20] MEDS ORDERED: diphenhydrAMINE Capsule 25 MG CAP PO PRN (16:21)
[2024-07-20] MEDS ORDERED: REPAGLINIDE 1 MG SCH (16:21)
[2024-07-20] MEDS ORDERED: LORazepam 0.5 MG TAB PO PRN (16:21)
[2024-07-20] MEDS ORDERED: DO NOT ADMINISTER FLU VACCINE PRN (16:21)
[2024-07-20] MEDS ORDERED: BLOOD GLUCOSE METER CONTINUOUS SCH (16:21)
[2024-07-20] MEDS ORDERED: SOD PHOSPHATE/SOD BIPHOSPHATE ENEMA 132 ML BTL PR PRN (16:21)
[2024-07-20] MEDS ORDERED: HYDROmorphone INJ 0.5 MG/0.5 ML SYR IV PRN (16:21)
[2024-07-20] MEDS ORDERED: ALBUTEROL HFA 8 GM INHALER INH PRN (16:21)
[2024-07-20] MEDS ORDERED: HYDROmorphone INJ 1 MG/ML SYRINGE IV PRN (16:21)
[2024-07-20] MEDS ORDERED: GLUCAGON FOR INJ 1 MG VIAL SQ PRN (17:00)
[2024-07-20] MEDS ORDERED: DEXTROSE 50% 50 ML SYRINGE IV PRN (17:00)
[2024-07-20] MEDS ORDERED: CARBOHYDRATES FOR HYPOGLYCEMIA PO PRN (17:00)
[2024-07-20] MEDS ORDERED: GLUCOSE 10 TAB/TUBE PO PRN (17:00)
[2024-07-20] MEDS ORDERED: GLUCOSE 40% GEL 15 GM TUBE PO PRN (17:00)
[2024-07-20] MEDS: oxyCODONE/ACETAMINOPHEN 5mg/325mg TAB PO PRN (17:51)
[2024-07-20] MEDS: LANTUS PER UNIT CHARGE SC ONE (18:21)
[2024-07-20] MEDS: INSULIN ASPART PER UNIT CHARGE SC SCH (18:22)
[2024-07-20] MEDS: ACETAMINOPHEN 500 MG TAB PO PRN (18:28)
--- NOTE | 2024-07-20 19:24 | Pharmacy Report ---
Pharmacy Glycemic Short Note 2 - Date of Service July 20, 2024 - Glycemic Short BSG Results (Last 24 hours): 07/20/24 07/20/24 07/20/24 09:31 14:57 16:25 POC Glucose 158 H 143 H 163 H OUTPATIENT ANTIDIABETIC REGIMEN: * Toujeo 65 units SC daily * Trulicity 3 mg SC weekly (Fridays) * Repaglinide 10 mg PO TIDM HbA1c: 6.1% (07/05/21) ASSESSMENT: * SR is a 73 year old female POD #0 s/p lumbar discectomy * Received 8 mg IV dexamethasone in OR, no ongoing steroids * Preop blood sugar of 158 mg/dL, postop blood sugar of 163 mg/dL * RN Confirmed home basal dose w/ patient (65 units SC daily) and did not take any insulin yet today PLAN FOR INPATIENT GLYCEMIC CONTROL: * Hold outpatient oral diabetes medications * Basal insulin * Lantus 30 units SC daily * Bolus insulin * NovoLog per scale ACHS or Q6hrs while NPO * Goal Range: Low 110 mg/dL - High 140 mg/dL * Correction Factor: 20 mg/dL/unit * Nutritional / Prandial insulin per carb ratio of 1 unit per 6 grams CHO consumed
[2024-07-20] MEDS: CYCLOBENZAPRINE HCL 10 MG TAB PO SCH (21:33)
[2024-07-20] MEDS: DOCUSATE SODIUM/SENNA 50/8.6MG TAB PO SCH (21:37)
[2024-07-21 03:21] VITALS: RESP 16
[2024-07-21] MEDS: LEVOTHYROXINE SODIUM 75 MCG TABLET PO SCH (05:59)
[2024-07-21] MEDS: POLYETHYLENE (MIRALAX) 17 GM PACK PO SCH (06:00)
[2024-07-21 07:31] VITALS: BP 117/71; PULSE 67; TEMP 97.5; O2SAT 95
[2024-07-21] MEDS: METOPROLOL SUCC 25MG EXT REL TAB PO SCH (07:59)
[2024-07-21] MEDS: CALCIUM 600MG + VIT D 400 IU TAB PO SCH (08:00)
[2024-07-21] MEDS: ATORVASTATIN 10 MG TAB PO SCH (08:00)
[2024-07-21] MEDS: ANASTROZOLE 1 MG TAB PO SCH (08:01)
--- NOTE | 2024-07-21 08:15 | Orthopedic Progress Note ---
Date of Service July 21, 2024 Assessment & Plan (1) S/P discectomy: Plan s/p Lumbar discectomy activity as tolerated pain control PT home today Subjective s/p lumbar discectomy, some incisional pain, no complaints Review of Systems All systems reviewed & are unremarkable except as noted in HPI & below. Physical Exam 5/5 strength bilateral LE SILT L2-S1 Results & Data Results & Data Laboratory Results . Diagnostic Findings . PG Care Time/CCT Total # of Minutes Spent Total Time Spent with Patient: Total time spent is greater than 50% in coordination of care (as documented) at patient's floor/unit and/or counseling patient: Coding Level of Care Code 28599 Post Operative Follow-Up Diagnoses S/P discectomy Z98.890
--- NOTE | 2024-07-21 08:43 | Discharge Summary ---
Date of Service July 21, 2024 Admission HPI (Per Admitting) Intractible left leg radicular pain left L4 pattern despite conservative care. Elected to proceed to surgery. Admission Exam (Per Admitting) 5/5 Bilateral LE L2-S1 myotomes Principal Diagnosis Same as "Discharge Diagnosis" noted below under Discharge Instructions. Discharge Exam 5/5 strength bilateral LE SILT L2-S1 Discharge Data Procedures Performed Operation Date: 07/20/24 10:15 Actual Procedures p L3-L4 Discectomy(Not Applicable) - Nehemiah Wadsworth MD Ordered Studies 07/20/24 10:15 FL spine 1V any level Routine Hospital Course (1) Lumbar radicular syndrome: (2) Other intervertebral disc degeneration, lumbar region: Plan Uneventful post op course following discectomy, pain controlled, voiding, ambulating, tolerating PO. PG Care Time/CCT Total # of Minutes Spent Total Time Spent with Patient: Total time spent is greater than 50% in coordination of care (as documented) at patient's floor/unit and/or counseling patient: Discharge Plan Discharge Items Patient Disposition: Home - Self-Care Reason For Visit: Pain of Left Lower Extremity Discharge Diagnosis: S/p Lumbar discectomy for L3-4 disc herniation Activity: As commented below Activity Comment: Follow instruction sheet provided in office Bathing Comment: no baths, may shower according to instruction sheet provided Weightbearing: Full weightbearing Non-emergency contact: Primary Care Provider and Surgeon Call non-emergency contact if: your symptoms worsen, your pain is worsening, you have a fever, your temperature is above 101, your wound has increased redness, your wound has increased drainage and your wound pain has increased Follow-up/Referrals: Savannah Mayes MD [Primary Care Provider] - Nehemiah Wadsworth MD [Surgeon] - Diet: Other - See Diet Comment Diet Comment: resume home diet Addtl Attending Provider Instructions: Follow instructions on sheet from Dr. Wadsworth's office Pending Studies at Discharge: No Stand-Alone Forms: My [employer], Smoking Cessation Medications and DC Order Prescriptions: New oxycodone-acetaminophen [Percocet] 5-325 mg tablet 1 tab PO Q4H PRN (Reason: pain) 7 Days Qty: 42 0RF naproxen 500 mg tablet 500 mg PO BID Qty: 10 0RF cyclobenzaprine 10 mg tablet 10 mg PO Q8H PRN (Reason: muscle spasm) Qty: 90 0RF ondansetron 4 mg tablet,disintegrating 4 mg PO Q6H PRN (Reason: nausea and vomiting) Qty: 30 0RF Continued meclizine 25 mg tablet 25 mg PO TID PRN (Reason: Dizziness) Qty: 30 1RF albuterol sulfate 90 mcg/actuation HFA aerosol inhaler 2 puff inhalation Q4H PRN (Reason: Shortness Of Breath) Qty: 8.5 1RF (DME) pen needle, diabetic [BD Ultra-Fine Mini Pen Needle] 31 gauge x 3/16" needle See Dose Instructions .ROUTE .MEDSUPPLY Qty: 100 1RF Dose Instruction: As directed Rx Instructions: Use once daily. DX E11.9, Z79.4 levothyroxine 75 mcg tablet 75 mcg PO QAM Qty: 90 3RF metoprolol succinate 25 mg tablet extended release 24 hr 12.5 mg PO DAILY Qty: 90 3RF anastrozole 1 mg tablet 1 mg PO QAM Hold Instructions: pt stopped taking calcium carbonate-vitamin D2 1,200-400 mg-unit capsule 1 cap PO QAM Toujeo SoloStar U-300 Insulin 300 unit/mL (1.5 mL) insulin pen See Rx Instructions .ROUTE .COMPLEX Dose Instruction: INJECT 90 UNITS SUBCUTANEOUSLY DAILY IN THE MORNING Rx Instructions: INJECT 65 UNITS SUBCUTANEOUSLY DAILY IN THE MORNING repaglinide 1 mg tablet See Rx Instructions .ROUTE .COMPLEX Hold Instructions: Assess blood sugars without this medication Dose Instruction: TAKE 1 TABLET BY MOUTH THREE TIMES DAILY, TAKE 10 MINUTES PRIOR TO EACH MEAL Patient Comments: "Everything changed too quick and my sugars were too high, so I am still taking this" Rx Instructions: TAKE 1 TABLET BY MOUTH THREE TIMES DAILY, TAKE 10 MINUTES PRIOR TO LUNCH AND DINNER dulaglutide 3 mg/0.5 mL pen injector 3 mg SUBCUT WK Qty: 2 1RF Rx Instructions: Tuesday (DME) FreeStyle Saida 3 [place] Misc See Rx Instructions .Route Rx Instructions: As directed polyethylene glycol 3350 [Miralax] 17 gram/dose Powder 17 g PO DAILY atorvastatin [Lipitor] 10 mg tablet 10 mg PO QAM Discontinued Advil 3 tab PO UD PRN (Reason: Pain) Rx Instructions: otc, as directed. unknown strength. Discharge Orders: Discharge Order (Routine); Ordered 07/21/24 Ordered By: Nehemiah Wadsworth Admission Data Admit Date/Time: 07/20/24 15:03 Attending Provider: Nehemiah Wadsworth Admit Provider: Nehemiah Wadsworth Primary Care Provider: Savannah Mayes
[2024-07-21] MEDS: LANTUS PER UNIT CHARGE SC SCH (08:57)
[2024-07-21] MEDS ORDERED: POLYETHYLENE (MIRALAX) 17 GM PACK PO SCH (09:00)
== END 2024-07-21 12:00 | disposition home or self-care (01) ==
LOC: ASU 08:40 → 3E 08:40